=== PATIENT | female | born 1980 | race African-American/Black ===

== ENCOUNTER 2017-12-17 20:38 | Emergency (ER) | payer SELFPAY ==
[~2017-12-17] VITALS: Ht 165.1 cm; Wt 50.0 kg
[2017-12-17 21:32] VITALS: BP 120/67; PULSE 63; RESP 18; TEMP 97.9; O2SAT 100
[2017-12-17] MEDS ORDERED: NORC5TAB PO (21:55)
[2017-12-17] MEDS ORDERED: IBUP-232 PO (21:55)
[2017-12-17] MEDS ORDERED: CEPH-460 PO (21:55)
--- NOTE | 2017-12-17 21:56 | PD ---
HPI Chief Complaint: Laceration/Skin Injury Time Seen by Provider: 21:42 Travel History International Travel<30 days: No Contact w/Intl Traveler<30days: No Traveled to known affect area: No History of Present Illness HPI 37-year-old female presents emergency department for evaluation of a laceration sustained to the left anterior wrist. Patient states she was trying to unlock her door with a knife when she slipped, cutting her wrist. Patient reports moderate pain at site. No limitations in range of motion alterations in sensation. Bleeding is controlled. She is up-to-date on her tetanus vaccinations. She has no other symptoms to report at this time. [facility] Past Medical History Medical History: Denies Significant Hx Diminished Hearing: No Tetanus Vaccination: < 5 Years Influenza Vaccination: No ?: Not LMP: 12/17/2017 Past Surgical History Eye Surgery: Yes (removal of a cyst) Social History Alcohol Use: Yes (socially) Tobacco Use: Yes Substance Use: No Allergies-Medications (Allergen,Severity, Reaction): Coded Allergies: amoxicillin (Verified Allergy, Severe, 12/17/17) vomiting Reported Meds & Prescriptions Reported Meds & Active Scripts Active Keflex (Cephalexin) 500 Mg Cap 500 Mg PO Q6H 5 Days Winfield (Hydrocodone-Acetaminophen) 5 Mg-325 Mg Tab 1 Tab PO Q6H PRN Ibuprofen 600 Mg Tab 600 Mg PO Q8HR PRN Review of Systems Except as stated in HPI: all other systems reviewed are Neg Physical Exam Narrative GENERAL: Well-nourished, well-developed female patient in no acute distress SKIN: Focused skin assessment warm/dry. 2 cm laceration of the left wrist. Bleeding is controlled. HEAD: Normocephalic. EYES: No scleral icterus. No injection or drainage. NECK: Supple, trachea midline. No JVD or lymphadenopathy. CARDIOVASCULAR: Regular rate and rhythm without murmurs, gallops, or rubs. RESPIRATORY: Breath sounds equal bilaterally. No accessory muscle use. MUSCULOSKELETAL: No cyanosis, or edema. Patient has full flexion-extension of the digits of the affected extremity. Sensation intact distal affected extremity. BACK: Nontender without obvious deformity. No CVA tenderness. Data Data Last Documented VS Vital Signs Date Time Temp Pulse Resp B/P (MAP) Pulse Ox O2 Delivery O2 Flow Rate FiO2 12/17/17 21:32 97.9 63 18 120/67 (84) 100 Orders Orders Ed Discharge Order (12/17/17 21:53) [facility] Medical Decision Making Medical Screen Exam Complete: Yes Emergency Medical Condition: Yes Medical Record Reviewed: Yes Differential Diagnosis Laceration superficial versus deep versus tendon injury versus abrasion versus avulsion Narrative Course 37-year-old female presents emergency department for evaluation of laceration to the left wrist. Wound is fairly superficial. Bleeding is controlled. It is approximated without difficulty. Patient is counseled on care and discharged home to follow-up with primary care provider. She agrees to return immediately with acute worsening symptoms. Procedures Procedure Narrative LACERATION LOCATION: Left wrist LENGTH: [2 cm NUMBER OF STITCHES/TUSHAR: 3 tushar REPAIR: The area of the laceration was prepped with Betadine and sterilely draped. The wound was copiously irrigated and explored without evidence of foreign body, tendon injury or neurovascular injury. The wound was closed using [stable this was a single layer repair. A sterile dressing was applied. The patient was advised to keep the dressing clean and dry. Patient tolerated the procedure well. Diagnosis Primary Impression: Laceration of wrist, left Qualified Codes: S61.512A - Laceration without foreign body of left wrist, initial encounter Referrals: Primary Care Physician Patient Instructions: General Instructions, Staple Care (ED) Additional Instructions: Keep the area clean and dry Follow-up with a primary care provider Tushar are to be removed in 10 days. This can be done in the emergency department or her primary care provider's office Return immediately with acute worsening of symptoms Med/Other Pt SpecificInfo: Prescription(s) given Scripts Cephalexin (Keflex) 500 Mg Cap 500 MG PO Q6H for Infection for 5 Days, #20 CAP 0 Refills Prov: Zonia Young 12/17/17 Hydrocodone-Acetaminophen (Winfield) 5 Mg-325 Mg Tab 1 TAB PO Q6H Y for PAIN GREATER THAN 5, #6 TAB 0 Refills Prov: Zonia Young 12/17/17 Ibuprofen (Ibuprofen) 600 Mg Tab 600 MG PO Q8HR Y for PAIN, #30 TAB 0 Refills Prov: Zonia Young 12/17/17 Disposition: 01 DISCHARGE HOME Condition: Stable Zonia Young Dec 17, 2017 21:56
== END 2017-12-17 22:01 | disposition home or self-care (01) ==
LOC: NEPD 20:38
DX: S61.512A Laceration without foreign body of left wrist, initial encounter (principal); W26.0XXA Contact with knife, initial encounter; Y93.89 Activity, other specified
CPT/HCPCS: 12001

== ENCOUNTER 2018-01-01 13:08 | Emergency (ER) | payer SELFPAY ==
[~2018-01-01 13:08] MED LIST: CEPH-460 PO; IBUP-232 PO; NORC5TAB PO
[2018-01-01 13:17] VITALS: BP 99/56; PULSE 73; RESP 16; TEMP 99.2; O2SAT 97
--- NOTE | 2018-01-01 13:27 | PD ---
HPI . Staple removal Chief Complaint: Laceration/Skin Injury Time Seen by Provider: 13:21 Travel History International Travel<30 days: No Contact w/Intl Traveler<30days: No Traveled to known affect area: No History of Present Illness HPI Patient presents with chief complaint of needing to have her tushar removed. Tushar were placed on 12/17. She reports no signs or symptoms of infection such as drainage, unusual pain, redness. PFSH Past Medical History Diminished Hearing: No ?: Not Past Surgical History Eye Surgery: Yes (removal of a cyst) Social History Alcohol Use: Yes (socially) Tobacco Use: Yes Substance Use: No Allergies-Medications (Allergen,Severity, Reaction): Coded Allergies: amoxicillin (Verified Allergy, Severe, 01/01/18) vomiting Reported Meds & Prescriptions Reported Meds & Active Scripts Active Keflex (Cephalexin) 500 Mg Cap 500 Mg PO Q6H 5 Days [place] (Hydrocodone-Acetaminophen) 5 Mg-325 Mg Tab 1 Tab PO Q6H PRN Ibuprofen 600 Mg Tab 600 Mg PO Q8HR PRN Review of Systems Except as stated in HPI: all other systems reviewed are Neg Physical Exam Narrative GENERAL: Awake and alert and in no acute distress. SKIN: Warm and dry. She has a healed laceration on the flexor aspect of the left wrist. HEAD: Normocephalic/atraumatic. EYES: Pupils are equal. Extraocular movements are intact. NECK: Normal range of motion. CARDIOVASCULAR: Regular rate and rhythm. RESPIRATORY: Nonlabored respirations. MUSCULOSKELETAL: Atraumatic. NEUROLOGICAL: Nonfocal. PSYCHIATRIC: Appropriate mood and affect. Data Data Last Documented VS Vital Signs Date Time Temp Pulse Resp B/P (MAP) Pulse Ox O2 Delivery O2 Flow Rate FiO2 01/01/18 13:17 99.2 73 16 99/56 (70) 97 Orders Orders Ed Discharge Order (01/01/18 13:25) MDM Medical Decision Making Medical Screen Exam Complete: Yes Emergency Medical Condition: Yes Differential Diagnosis Differential diagnosis includes healing wound, healed wound, wound infection Narrative Course Patient presents for staple removal from her left wrist. 3 tushar have been removed. Diagnosis Primary Impression: Removal of tushar Patient Instructions: General Instructions Departure Forms: Tests/Procedures Disposition: 01 DISCHARGE HOME Condition: Stable Allison Torre MD January 01, 2018 13:27
== END 2018-01-01 14:14 | disposition home or self-care (01) ==
LOC: NEPD 13:08
DX: Z48.02 Encounter for removal of sutures (principal)
CPT/HCPCS: 99281